=== PATIENT | female | born 1950 | race Caucasian/White ===

== ENCOUNTER 2023-07-09 13:16 | Emergency (ER) | payer MEDICARE ==
[~2023-07-09] VITALS: Ht 152.4 cm; Wt 56.7 kg
[2023-07-09 13:24] VITALS: BP 125/70; TEMP 98.4; O2SAT 96
[2023-07-09] MEDS ORDERED: ACETAMINOPHEN 325 MG TABLET ONE (16:22)
[2023-07-09] MEDS ORDERED: IBUPROFEN 600 MG TABLET ONE (16:22)
[2023-07-09] MEDS ORDERED: NAPR-1009 PO (16:24)
[2023-07-09] MEDS ORDERED: TDAP [DIPH/PERTUSSIS/TET] 0.5 ML VIAL IM ONE ×2 (16:25→16:30)
[2023-07-09] MEDS ORDERED: IBUPROFEN 600 MG TABLET PO ONE (16:30)
[2023-07-09] MEDS ORDERED: ACETAMINOPHEN 325 MG TABLET PO ONE (16:30)
== END 2023-07-09 19:10 ==
LOC: ER 13:17
DX: S43.401A Unspecified sprain of right shoulder joint, initial encounter (principal); S50.311A Abrasion of right elbow, initial encounter; S09.90XA Unspecified injury of head, initial encounter; I10 Essential (primary) hypertension; W01.0XXA Fall on same level from slipping, tripping and stumbling without subsequent striking against object, initial encounter; Y93.89 Activity, other specified; Y92.89 Other specified places as the place of occurrence of the external cause; Y99.8 Other external cause status
CPT/HCPCS: 70450-TC; 71045-TC; 72125-TC; 73030-TC; 90715